=== PATIENT | female | born 1990 | race Caucasian/White ===

== ENCOUNTER 2020-07-01 10:42 | Emergency (ER) | payer SELFPAY ==
[~2020-07-01] VITALS: Ht 152.4 cm; Wt 68.9 kg
[2020-07-01 10:46] VITALS: BP 136/80
--- NOTE | 2020-07-01 10:51 | NUR ---
PT AMBULATED TO BED 11.
--- NOTE | 2020-07-01 10:54 | NUR ---
30 Y/O FEMALE C/O 11/05 BOTTOM OF R FOOT PAIN DESCRIBES STABBING WITH EXERTION X5 DAYS, DENIES INJURY. DENIES OTC MEDS. PT DENIES FEVER/CHILLS, DENIES N/V. NO SWELLING, ERYTHEMA TO SITE NOTED AT THIS TIME. DENIES PMH NKA
--- NOTE | 2020-07-01 11:35 | NUR ---
Dr. Retana at pt bedside for further evaluation.
[2020-07-01] MEDS ORDERED: NAPR-54 PO (12:28)
--- NOTE | 2020-07-01 12:40 | NUR ---
Patient discharged with v/s stable. Written and verbal after care instructions given and explained. Patient alert, oriented and verbalized understanding of instructions. Ambulatory with steady gait. All questions addressed prior to discharge. ID band removed. Patient advised to follow up with PMD. Rx of Naproxen 500mg PO BID PRN pain given. Patient educated on indication of medication including possible reaction and side effects. Opportunity to ask questions provided and answered.
== END 2020-07-01 12:40 | disposition home or self-care (01) ==
LOC: MED 10:42
DX: S93.501A Unspecified sprain of right great toe, initial encounter (principal); X58.XXXA Exposure to other specified factors, initial encounter; Y93.89 Activity, other specified; Y92.89 Other specified places as the place of occurrence of the external cause; Y99.8 Other external cause status
CPT/HCPCS: 73660; 99283